=== PATIENT | female | born 1990 | race Asian ===

== ENCOUNTER → 2021-12-10 | Emergency (ER) | payer OTHER ==
[~2021-12-10] VITALS: Ht 165.1 cm; Wt 50.0 kg
[~2021-12-10] MED LIST: EMTR1TAB11 MT; EMTRICITABINE 200MG CAPSULE PO ONE; EMTRICITABINE 200MG CAPSULE PO SCH; RALT400T MT; RALTEGRAVIR 400MG TABLET PO SCH; RALTEGRAVIR 400MG TABLET PO STA; TENOFOVIR 300MG TABLET PO ONE; TENOFOVIR 300MG TABLET PO SCH
[2021-12-10 16:40] VITALS: BP 124/76
[2021-12-10 17:13] LABS: BASOPHILS % 0.6 % (0.0-2.0); EOSINOPHILS % 0.3 % (0.0-5.0); HEMATOCRIT. 37.8 % (36.0-48.0); HEMOGLOBIN. 12.5 g/dL (12.0-16.0); MEAN CORPUSCULAR HEMOGLOBIN 29.3 pg (28.0-32.0); MEAN CORPUSCULAR VOLUME 88.5 fL (81.0-99.0); MEAN PLATELET VOLUME 8.8 fl (7.4-10.4); MONOCYTES % 5.1 % (2.0-8.0); PLATELET 234 x1000/uL (130-400); RED BLOOD CELL COUNT 4.27 mill/uL (4.2-5.4); RED CELL DISTRIBUTION WIDTH 12.9 % (11.6-14.6)
[2021-12-10 17:42] LABS: HEPATITIS B SURFACE AB > 1000.0 mIU/mL
[2021-12-10 17:52] LABS: HEPATITIS B SURFACE ANTIGEN NEGATIVE
[2021-12-13 05:08] LABS: HIV SCREEN 4G Non Reactive (Non Reactive)
== END | disposition home or self-care (01) ==
LOC: ER 15:39
DX: S61.231A Puncture wound without foreign body of left index finger without damage to nail, initial encounter (principal); R45.1 Restlessness and agitation; W22.8XXA Striking against or struck by other objects, initial encounter; Y93.89 Activity, other specified; Y92.89 Other specified places as the place of occurrence of the external cause; Y99.8 Other external cause status
CPT/HCPCS: 36415; 80076; 85025; 86705; 86709; 86803; 87340; 87389; 99283